=== PATIENT | male | born 1960 | race Hispanic/Latino ===

== ENCOUNTER → 2020-08-23 | Outpatient (CLI) | payer BC | LOC: RAD 09:55 | PROVIDERS: ATTEND Internal Medicine | DX: M43.07 Spondylolysis, lumbosacral region (principal) | CPT/HCPCS: 72110 ==

== ENCOUNTER → 2024-09-07 | Day surgery (SDC) | payer BC, OTHER ==
[~2024-09-07] MED LIST: ALLOPURINOL100 MG PO; ATENOLOL50 MG PO; DEXMEDETOMIDINE HCL 200 MCG/2 ML VIAL ONE; FLOMAX0.4 MG PO; GLUCAGON FOR INJ 1 MG VIAL ONE; GLYCOPYRROLATE INJ 0.2 MG/ML VIAL ONE; HYOSCYAMINE SULFATE 0.5 MG/ML INJ ONE; KETAMINE 50MG/5ML SYR ONE; LACTATED RINGER'S 1,000 ML ONE; LASIX40 MG PO; LIDOCAINE HCL 2% LOCAL INJ 5 ML SDV VIAL INJ ONE; LOSARTAN-HCTZ1 EACH PO; METOCLOPRAMIDE HCL 10 MG/2ML VIAL ONE; MIDAZOLAM HCL 2 MG/2 ML VIAL ONE; NEURONTIN300 MG PO; PROPOFOL IV EMULSION 50 ML IV ONE; REGLAN10 MG PO; ZETIA10 MG PO
[2024-09-07 13:38] VITALS: TEMP 98.1
[2024-09-07 14:25] VITALS: BP 139/70; PULSE 60; RESP 14; O2SAT 98
== END | disposition home or self-care (01) ==
LOC: OR 09:47
PROVIDERS: ATTEND Internal Medicine Gastroenterology
DX: K29.50 Unspecified chronic gastritis without bleeding (principal); D12.3 Benign neoplasm of transverse colon; K20.90 Esophagitis, unspecified without bleeding; K44.9 Diaphragmatic hernia without obstruction or gangrene; K64.8 Other hemorrhoids; G47.33 Obstructive sleep apnea (adult) (pediatric); I10 Essential (primary) hypertension; Z71.89 Other specified counseling; E78.5 Hyperlipidemia, unspecified; E66.01 Morbid (severe) obesity due to excess calories; M10.9 Gout, unspecified; G89.29 Other chronic pain; Z79.899 Other long term (current) drug therapy; Z68.36 Body mass index [BMI] 36.0-36.9, adult; Z71.3 Dietary counseling and surveillance
CPT/HCPCS: 43239; 45385; 93005; J1610; J1980; J2003; J2250; J2470; J2704; J7121; 45378; J2765